=== PATIENT | female | born 1995 | race Caucasian/White ===

== ENCOUNTER 2016-07-11 23:33 | Inpatient (IN) | payer OTHER ==
[~2016-07-11] VITALS: Ht 162.6 cm; Wt 72.1 kg
[2016-07-11 23:34] VITALS: O2SAT 99
[2016-07-11] MEDS ORDERED: ETOMIDATE 20 MG/10 ML VIAL ONE ×2 (23:36→23:48)
[2016-07-11] MEDS ORDERED: SUCCINYLCHOLINE CHLORIDE 200 MG/10 ML VIAL ONE (23:36)
[2016-07-11 23:55] VITALS: O2SAT 100
[2016-07-11] MEDS ORDERED: ceFAZolin 2 GM PREMIX 50 ML ONE (23:57)
[2016-07-11] MEDS ORDERED: DIPHTH/TETANUS/ACEL PERTUSSIS (BOOSTER) 0.5 ML VIAL/PFS IM ONE (23:58)
[2016-07-11] MEDS ORDERED: PROPOFOL 1000 MG/100 ML INJ 100 ML ONE (23:59)
[2016-07-12] VITALS (18 sets, daily range): BP systolic 84–135; BP diastolic 56–70; PULSE 58–82; RESP 12–31; TEMP 96.1–99.2; O2SAT 94–100
[2016-07-12] LABS: AUTOMATED NEUTROPHIL # 5.3 TH/MM3 (1.8-7.7); BASOPHIL # 0.1 TH/MM3 (0-0.2); BASOPHIL % 0.6 % (0.0-2.0); EOSINOPHIL # 0.2 TH/MM3 (0-0.4); EOSINOPHIL % 2.3 % (0.0-4.0); HEMATOCRIT 29.8 % (35.0-46.0); HEMO FLAGS DIFF FINAL; MEAN CELL VOLUME 86.9 FL (80.0-100.0); MEAN CORPUSCULAR HEMOGLOBIN 28.1 PG (27.0-34.0); MEAN CORPUSCULAR HGB CONC 32.3 % (32.0-36.0); MONO % 8.6 % (0.0-8.0); NEUT % 56.5 % (16.0-70.0); PLATELET COUNT 280 TH/MM3 (150-450); RED BLOOD COUNT 3.43 MIL/MM3 (4.00-5.30); RED CELL DISTRIBUTION WIDTH 13.9 % (11.6-17.2); WHITE BLOOD COUNT 9.4 TH/MM3 (4.0-11.0)
[2016-07-12 00:09] LABS: I-STAT POTASSIUM 2.8 MMOL/L (3.5-4.9)
[2016-07-12] MEDS ORDERED: ceFAZolin 2 GM PREMIX 50 ML ONE (00:09)
[2016-07-12] MEDS ORDERED: ONDANSETRON HCL 4 MG/2 ML VIAL ONE (00:12)
[2016-07-12] MEDS ORDERED: MIDAZOLAM HCL 5 MG/ML VIAL (1 ML) ONE (00:12)
[2016-07-12 00:23] LABS: APTT (PATIENT) 22.5 SEC (24.3-30.1); PROTHROMBIN TIME - PATIENT 11.4 SEC (9.8-11.6)
--- NOTE | 2016-07-12 00:25 | RADRPT ---
EXAM DATE/TIME: 07/11/2016 23:55 [facility] COMPARISON: No previous studies available for comparison. INDICATIONS : Post intubation. MEDICAL HISTORY : None. SURGICAL HISTORY : None. ENCOUNTER: Initial ACUITY: 1 day PAIN SCORE: Non-responsive. LOCATION: Bilateral chest FINDINGS: The cardiac silhouette is normal in transverse diameter. The lungs are free of acute parenchymal opac ity. No effusions are identified. Endotracheal tube is in the right mainstem bronchus and should be r etracted at least 5 cm. CONCLUSION: 1. Endotracheal tube in right mainstem bronchus. This should be retracted 5 cm Donald Jackson MD on July 12, 2016 at 0:23 Board Certified Radiologist. This report was verified electronically.
--- NOTE | 2016-07-12 00:27 | RADRPT ---
EXAM DATE/TIME: 07/11/2016 23:55 [facility] COMPARISON: No previous studies available for comparison. INDICATIONS : Reposition endotrachial tube. MEDICAL HISTORY : None. SURGICAL HISTORY : None. ENCOUNTER: Subsequent ACUITY: 1 day PAIN SCORE: Non-responsive. LOCATION: Bilateral chest FINDINGS: A single view of the chest demonstrates the lungs to be symmetrically aerated without evidence of mas s, infiltrate or effusion. The cardiomediastinal contours are unremarkable. Osseous structures are intact. Endotracheal tube is in good position above the richard. CONCLUSION: 1. Satisfactory position of endotracheal tube Donald Jackson MD on July 12, 2016 at 0:25 Board Certified Radiologist. This report was verified electronically.
[2016-07-12] MEDS ORDERED: MIDAZOLAM 100 MG/ML INJ 100 ML ONE (00:55)
[2016-07-12] MEDS ORDERED: SODIUM CHLOR 0.9% 1000 ML INJ 1,000 ML IV SCH (01:19)
[2016-07-12] MEDS ORDERED: ONDANSETRON HCL 4 MG/2 ML VIAL IV PRN (01:30)
[2016-07-12] MEDS ORDERED: PROPOFOL 1000 MG/100 ML INJ 100 ML IV SCH (01:30)
[2016-07-12] MEDS ORDERED: SODIUM CHLORIDE 0.9% FLUSH 10 ML FLUSH IV FLUSH PRN (01:30)
[2016-07-12] MEDS ORDERED: NALOXONE HCL 0.4 MG/ML AMP IV PRN (01:30)
[2016-07-12] MEDS ORDERED: fentaNYL DRIP 250 ML IV SCH (01:30)
[2016-07-12] MEDS ORDERED: Post-op Orders (for Pharmacy) MISC XX ONE (01:30)
[2016-07-12] MEDS ORDERED: BUPIVACAINE HCL PF 0.25% 30 ML VIAL INFIL ONE (02:02)
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
[2016-07-12] MEDS ORDERED: FOSPHENYTOIN INJ 1,000 MGPE in SODIUM CHLORIDE 0.9% INJ 50 ML IV ONE (02:30)
[2016-07-12 03:36] LABS: BLOOD GAS BASE EXCESS -2.9 mmol/L (-2-2); BLOOD GAS CARBOXYHEMOGLOBIN 1.4 % (0-4); BLOOD GAS HCO3 22 mmol/L (22-26); BLOOD GAS O2 HGB SATURATION 94 % (90-100); BLOOD GAS OXYGEN CONTENT 11.4 Vol % (12.0-20.0); BLOOD GAS PCO2 41 mmHg (38-42); BLOOD GAS PO2 85 mmHg (61-120); BLOOD GAS TOTAL HGB 8.5 G/DL (12.0-16.0); CRITICAL VALUE NO; OXYGEN DEVICE VENTILATOR; TEMP CORR TO 98.6
[2016-07-12 03:37] LABS: DRAW SITE LT RADIAL; FIO2 40 %; NUMBER OF ARTERIAL PUNCTURES 1; STAT NO; ULNAR PULSE PRESENT; VENT SETTINGS PRVC/AC
--- NOTE | 2016-07-12 03:56 | RADRPT ---
EXAM DATE/TIME: 07/12/2016 02:41 [facility] COMPARISON: No previous studies available for comparison. INDICATIONS : Altered mental status. RADIATION DOSE: 56.35 CTDIvol (mGy) MEDICAL HISTORY : Non-responsive. SURGICAL HISTORY : Non-responsive. ENCOUNTER: Initial ACUITY: 1 day PAIN SCALE: Non-responsive LOCATION: cranial TECHNIQUE: Multiple contiguous axial images were obtained of the head. Using automated exposure control and adj ustment of the mA and/or kV according to patient size, radiation dose was kept as low as reasonably a chievable to obtain optimal diagnostic quality images. FINDINGS: CEREBRUM: The ventricles are normal for age. No evidence of midline shift, mass lesion, hemorrhage or acute in farction. No extra-axial fluid collections are seen. POSTERIOR FOSSA: The cerebellum and brainstem are intact. The 4th ventricle is midline. The cerebellopontine angle i s unremarkable. EXTRACRANIAL: The visualized portion of the orbits is intact. There is benign-appearing mucosal disease in the maxi llary antra bilaterally. SKULL: The calvaria is intact. No evidence of skull fracture. CONCLUSION: 1. No evidence of acute intracranial pathology. No masses are identified. Donald Jackson MD on July 12, 2016 at 3:53 Board Certified Radiologist. This report was verified electronically.
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
[2016-07-12] MEDS ORDERED: PANTOPRAZOLE SODIUM 40 MG VIAL IV SCH (09:00)
[2016-07-12] MEDS ORDERED: levETIRAcetam INJ 500 MG in SODIUM CHLORIDE 0.9% INJ 100 ML IV SCH (09:00)
[2016-07-12] MEDS: SODIUM CHLORIDE 0.9% FLUSH 10 ML FLUSH IV FLUSH SCH ×2 (09:00→23:09)
[2016-07-12] MEDS ORDERED: ACETAMINOPHEN 1000 MG/100 ML VIAL IV ONE (09:59)
[2016-07-12] MEDS: oxyCODONE/ACETAMINOPHEN 5 MG/325 MG TAB PO PRN ×4 (10:11→23:14)
[2016-07-12] MEDS: levETIRAcetam 500 MG TAB PO SCH ×2 (10:15→23:09)
[2016-07-12] MEDS: DOCUSATE SODIUM 50 MG/SENNA 8.6 MG TAB PO SCH ×2 (10:16→23:06)
[2016-07-12] MEDS ORDERED: NORMOSOL R INJ 1,000 ML IV ONE (12:00)
[2016-07-12] MEDS ORDERED: POTASSIUM CHLORIDE 20 MEQ CONTROLLED RELEASE TAB PO ONE (13:00)
[2016-07-12 20:57] LABS: AUTOMATED NEUTROPHIL # 5.4 TH/MM3 (1.8-7.7); BASOPHIL % 0.2 % (0.0-2.0); EOSINOPHIL # 0.1 TH/MM3 (0-0.4); EOSINOPHIL % 1.3 % (0.0-4.0); HEMATOCRIT 24.1 % (35.0-46.0); HEMO FLAGS DIFF FINAL; LYMPHOCYTE # 1.7 TH/MM3 (1.0-4.8); MEAN CELL VOLUME 81.6 FL (80.0-100.0); MEAN CORPUSCULAR HEMOGLOBIN 27.9 PG (27.0-34.0); MEAN CORPUSCULAR HGB CONC 34.2 % (32.0-36.0); MONO % 7.5 % (0.0-8.0); PLATELET COUNT 207 TH/MM3 (150-450); RED BLOOD COUNT 2.96 MIL/MM3 (4.00-5.30); RED CELL DISTRIBUTION WIDTH 15.3 % (11.6-17.2); WHITE BLOOD COUNT 7.9 TH/MM3 (4.0-11.0)
[2016-07-12 21:12] LABS: ALT (GPT) 19 U/L (10-53); ANION GAP 7 MEQ/L (5-15); AST (GOT) 32 U/L (15-37); BICARBONATE 24.9 MEQ/L (21.0-32.0); BLOOD UREA NITROGEN 5 MG/DL (7-18); CHLORIDE 110 MEQ/L (98-107); GLOMERULAR FILTRATION RATE 85 ML/MIN (>89); POTASSIUM 3.6 MEQ/L (3.5-5.1); SODIUM (NA) 142 MEQ/L (136-145)
[2016-07-12 21:15] LABS: ALKALINE PHOSPHATASE 54 U/L (45-117); TOTAL BILIRUBIN ADULT 0.3 MG/DL (0.2-1.0)
[2016-07-12] MEDS: FAMOTIDINE 20 MG TAB PO SCH (23:06)
[2016-07-13] VITALS (9 sets, daily range): BP systolic 100–130; BP diastolic 56–84; PULSE 55–104; RESP 16–28; TEMP 96–99.2; O2SAT 94–100
[2016-07-13] MEDS: ENOXAPARIN SODIUM 40 MG/0.4 ML SYRINGE SQ SCH (01:09)
[2016-07-13] MEDS: oxyCODONE/ACETAMINOPHEN 5 MG/325 MG TAB PO PRN ×4 (04:47→18:19)
[2016-07-13 06:44] LABS: AUTOMATED NEUTROPHIL # 4.7 TH/MM3 (1.8-7.7); BASOPHIL % 0.2 % (0.0-2.0); EOSINOPHIL # 0.2 TH/MM3 (0-0.4); EOSINOPHIL % 2.4 % (0.0-4.0); HEMATOCRIT 24.3 % (35.0-46.0); HEMO FLAGS DIFF FINAL; LYMPH % 25.1 % (9.0-44.0); LYMPHOCYTE # 1.8 TH/MM3 (1.0-4.8); MEAN CELL VOLUME 82.5 FL (80.0-100.0); MONO % 5.9 % (0.0-8.0); NEUT % 66.4 % (16.0-70.0); PLATELET COUNT 200 TH/MM3 (150-450); RED BLOOD COUNT 2.95 MIL/MM3 (4.00-5.30); RED CELL DISTRIBUTION WIDTH 15.3 % (11.6-17.2); WHITE BLOOD COUNT 7.1 TH/MM3 (4.0-11.0)
[2016-07-13 07:05] LABS: BICARBONATE 25.4 MEQ/L (21.0-32.0); POTASSIUM 3.4 MEQ/L (3.5-5.1)
[2016-07-13 07:07] LABS: INDIRECT BILIRUBIN 0.2 MG/DL (0.0-0.8); TOTAL BILIRUBIN ADULT 0.3 MG/DL (0.2-1.0)
[2016-07-13] MEDS ORDERED: POTASSIUM CHLORIDE 10 MEQ CONTROLLED RELEASE TAB PO ONE (08:00)
[2016-07-13] MEDS: levETIRAcetam 500 MG TAB PO SCH ×2 (08:33→21:14)
[2016-07-13] MEDS: FAMOTIDINE 20 MG TAB PO SCH ×2 (08:33→21:14)
[2016-07-13] MEDS: SODIUM CHLORIDE 0.9% FLUSH 10 ML FLUSH IV FLUSH SCH ×2 (08:33→21:16)
[2016-07-13] MEDS: DOCUSATE SODIUM 50 MG/SENNA 8.6 MG TAB PO SCH ×2 (08:33→21:14)
[2016-07-13] MEDS ORDERED: HYDROmorphone HCL PF 1 MG/ML VIAL IV PUSH PRN (10:00)
[2016-07-13] MEDS: RESP: ALBUTEROL 2.5 MG/IPRATROPIUM 0.5 MG NEB (PRN) NEB ×4 (10:20→22:33)
[2016-07-13] MEDS ORDERED: RESP: ALBUTEROL 2.5 MG/IPRATROPIUM 0.5 MG NEB (SCH) ONE (10:52)
--- NOTE | 2016-07-13 11:02 | RADRPT ---
EXAM DATE/TIME: 07/13/2016 09:55 [facility] COMPARISON: CHEST SINGLE AP, July 11, 2016, 23:55. INDICATIONS : Shortness of breath. MEDICAL HISTORY : None. SURGICAL HISTORY : None. ENCOUNTER: Initial ACUITY: 2 days PAIN SCORE: 0/10 LOCATION: Bilateral chest FINDINGS: Single AP view of the chest. The lungs are clear. Cardiomediastinal silhouette within normal limits. No evidence of pleural effusion or pneumothorax. CONCLUSION: No acute cardiopulmonary disease identified. Davey Brito MD on July 13, 2016 at 11:00 Board Certified Radiologist. This report was verified electronically.
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
--- NOTE | 2016-07-13 14:00 | HHI.PR ---
Subjective Subjective Notes Anxious Tachypneic, RR 40 States she is too painful to move her right hand/arm Objective Vitals/I&O Vital Signs Date Time Temp Pulse Resp B/P Pulse Ox O2 Delivery O2 Flow Rate FiO2 07/13/16 12:00 97.0 88 17 115/59 94 07/13/16 10:18 Nasal Cannula 2.00 07/12/16 12:19 21 Labs Laboratory Tests Test 07/12/16 07/13/16 19:35 06:12 White Blood Count 7.9 7.1 Red Blood Count 2.96 2.95 Hemoglobin 8.2 8.3 Hematocrit 24.1 24.3 Mean Corpuscular Volume 81.6 82.5 Mean Corpuscular Hemoglobin 27.9 28.0 Mean Corpuscular Hemoglobin 34.2 34.0 Concent Red Cell Distribution Width 15.3 15.3 Platelet Count 207 200 Mean Platelet Volume 8.1 7.9 Neutrophils (%) (Auto) 69.0 66.4 Lymphocytes (%) (Auto) 22.0 25.1 Monocytes (%) (Auto) 7.5 5.9 Eosinophils (%) (Auto) 1.3 2.4 Basophils (%) (Auto) 0.2 0.2 Neutrophils # (Auto) 5.4 4.7 Lymphocytes # (Auto) 1.7 1.8 Monocytes # (Auto) 0.6 0.4 Eosinophils # (Auto) 0.1 0.2 Basophils # (Auto) 0.0 0.0 CBC Comment DIFF FINAL DIFF FINAL Differential Comment Sodium Level 142 141 Potassium Level 3.6 3.4 Chloride Level 110 108 Carbon Dioxide Level 24.9 25.4 Anion Gap 7 8 Blood Urea Nitrogen 5 4 Creatinine 0.61 0.50 Estimat Glomerular Filtration 85 106 Rate Random Glucose 96 86 Calcium Level 7.6 8.0 Total Bilirubin 0.3 0.3 Aspartate Amino Transf 32 30 (AST/SGOT) Alanine Aminotransferase 19 19 (ALT/SGPT) Alkaline Phosphatase 54 58 Total Protein 5.8 6.1 Albumin 2.8 2.8 Direct Bilirubin 0.1 Indirect Bilirubin 0.2 Radiology Last Impressions Chest X-Ray 07/13/16 0000 Signed Impressions: Service Date/Time: Wednesday, July 13, 2016 09:55 - CONCLUSION: No acute cardiopulmonary disease identified. Davey Brito MD Head CT 07/12/16 0000 Signed Impressions: Service Date/Time: Tuesday, July 12, 2016 02:41 - CONCLUSION: 1. No evidence of acute intracranial pathology. No masses are identified. Donald Jackson MD Narrative Exam GENERAL: Adult female in her 30's lying in bed. SKIN: Warm and dry. HEAD: Normocephalic. ENT: No nasal bleeding or discharge. Mucous membranes pink and moist. NECK: Trachea midline. No JVD. CARDIOVASCULAR: Regular rate and rhythm. RESPIRATORY: Scattered rhonchi auscultated throughout lung escobedo. Breath sounds equal bilaterally. Tachypneic, RR 40. GASTROINTESTINAL: Abdomen soft, non-tender, nondistended. + BS. MUSCULOSKELETAL: Extremities without cyanosis, +1 forearm edema. Right forearm dressing removed. Sutures C/D/I. NEUROLOGICAL: Awake and alert. Normal speech. A/P Assessment and Plan INJURIES: Right arm lac with brachial artery branch injury 07/12: Exploration/irrigation and repair of right arm laceration Diet: Regular, tolerating Pulm: IS, encourage patient use. PRN nebulizer treatments Pain: Percocet, added IV Dilaudid for better pain control. Activity: OOB. PT and OT evaluating. GI: Pepcid Bowel: Yvonne-colace. No BM yet DVT: SCDs, Lovenox 40 QD Right forearm lac with brachial artery branch injury 07/12: Exploration/irrigation and repair of right arm laceration Pain control Daily dressing changes with dry dressing Okay to shower OT Seizures Has history of but does not take meds at home Keppra 500 by mouth twice a day Neurology consulted EEG ordered Stat nebulizer treatment and CXR obtained for tachypnea today. CXR WNL. Patient's respiratory status improved after nebulizer treatment. Plan of care discussed with patient, mother and RN at bedside. Case management consulted to assist discharge planning. Plan to DC in 1-2 days. The exam, history, and the medical decision-making described in the above note were completed with the assistance of the mid-level provider. I reviewed and agree with the findings presented. I attest that I had a [id number] encounter with the patient on the same day, and personally performed and documented my assessment and findings in the medical record. Toñito Beasley Jul 13, 2016 14:00 Eloy Tovar MD Aug 06, 2016 11:01
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
[2016-07-13] MEDS ORDERED: LACTULOSE SYRUP 20 GM/30 ML CUP PO ONE (19:15)
[2016-07-13] MEDS ORDERED: LORazepam 2 MG/ML VIAL ONE (22:48)
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
[2016-07-13] MEDS: LORazepam 2 MG/ML VIAL IV PUSH PRN (23:15)
[2016-07-14] MEDS: ENOXAPARIN SODIUM 40 MG/0.4 ML SYRINGE SQ SCH (03:24)
[2016-07-14 08:00] VITALS: BP 120/58; PULSE 80; RESP 19; TEMP 96.2; O2SAT 100
[2016-07-14] MEDS: oxyCODONE/ACETAMINOPHEN 5 MG/325 MG TAB PO PRN ×2 (09:58→16:56)
[2016-07-14] MEDS: DOCUSATE SODIUM 50 MG/SENNA 8.6 MG TAB PO SCH ×2 (09:59→21:00)
[2016-07-14] MEDS: levETIRAcetam 500 MG TAB PO SCH ×2 (09:59→22:53)
[2016-07-14] MEDS: FAMOTIDINE 20 MG TAB PO SCH ×2 (09:59→22:54)
[2016-07-14] MEDS: SODIUM CHLORIDE 0.9% FLUSH 10 ML FLUSH IV FLUSH SCH ×2 (10:00→22:54)
[2016-07-14 10:17] VITALS: O2SAT 97
[2016-07-14 11:53] VITALS: BP 112/59; PULSE 72; RESP 19; TEMP 97.6; O2SAT 100
[2016-07-14] MEDS: RESP: ALBUTEROL 2.5 MG/IPRATROPIUM 0.5 MG NEB (PRN) NEB (12:16)
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
--- NOTE | 2016-07-14 15:55 | HHI.PR ---
Subjective Subjective Notes Anxiety attack with SOB overnight requiring Ativan Currently tearful Reports pain is better today and she is able to move her right arm more Objective Vitals/I&O Vital Signs Date Time Temp Pulse Resp B/P Pulse Ox O2 Delivery O2 Flow Rate FiO2 07/14/16 11:53 97.6 72 19 112/59 100 07/14/16 10:17 21 07/13/16 20:17 Nasal Cannula 2.00 Labs Laboratory Tests Test 07/11/16 07/12/16 07/13/16 23:35 03:25 06:12 Bedside Hemoglobin 9.9 G/DL Bedside Hematocrit 29.0 % Prothrombin Time 11.4 SEC Prothromb Time International 1.0 RATIO Ratio Activated Partial 22.5 SEC Thromboplast Time Bedside Sodium 144 MMOL/L Bedside Potassium 2.8 MMOL/L Bedside Chloride 107 MMOL/L Bedside Blood Urea Nitrogen 12 MG/DL Bedside Creatinine 0.8 MG/DL Bedside Glucose 161 MG/DL Blood Type A POSITIVE Antibody Screen NEGATIVE Crossmatch Leukocyte-Reduced Red Blood Cells Blood Bank Comment Blood Gas Puncture Site LT RADIAL Blood Gas Patient Temperature 98.6 Blood Gas HCO3 22 mmol/L Blood Gas Base Excess -2.9 mmol/L Blood Gas Oxygen Saturation 94 % Arterial Blood pH 7.35 Arterial Blood Partial 41 mmHg Pressure CO2 Arterial Blood Partial 85 mmHg Pressure O2 Arterial Blood Oxygen Content 11.4 Vol % Arterial Blood 1.4 % Carboxyhemoglobin Arterial Blood Methemoglobin 1.0 % Blood Gas Hemoglobin 8.5 G/DL Oxygen Delivery Device VENTILATOR Blood Gas Ventilator Setting PRVC/AC Blood Gas Inspired Oxygen 40 % White Blood Count 7.1 TH/MM3 Red Blood Count 2.95 MIL/MM3 Hemoglobin 8.3 GM/DL Hematocrit 24.3 % Mean Corpuscular Volume 82.5 FL Mean Corpuscular Hemoglobin 28.0 PG Mean Corpuscular Hemoglobin 34.0 % Concent Red Cell Distribution Width 15.3 % Platelet Count 200 TH/MM3 Mean Platelet Volume 7.9 FL Neutrophils (%) (Auto) 66.4 % Lymphocytes (%) (Auto) 25.1 % Monocytes (%) (Auto) 5.9 % Eosinophils (%) (Auto) 2.4 % Basophils (%) (Auto) 0.2 % Neutrophils # (Auto) 4.7 TH/MM3 Lymphocytes # (Auto) 1.8 TH/MM3 Monocytes # (Auto) 0.4 TH/MM3 Eosinophils # (Auto) 0.2 TH/MM3 Basophils # (Auto) 0.0 TH/MM3 CBC Comment DIFF FINAL Differential Comment Sodium Level 141 MEQ/L Potassium Level 3.4 MEQ/L Chloride Level 108 MEQ/L Carbon Dioxide Level 25.4 MEQ/L Anion Gap 8 MEQ/L Blood Urea Nitrogen 4 MG/DL Creatinine 0.50 MG/DL Estimat Glomerular Filtration 106 ML/MIN Rate Random Glucose 86 MG/DL Calcium Level 8.0 MG/DL Total Bilirubin 0.3 MG/DL Direct Bilirubin 0.1 MG/DL Indirect Bilirubin 0.2 MG/DL Aspartate Amino Transf 30 U/L (AST/SGOT) Alanine Aminotransferase 19 U/L (ALT/SGPT) Alkaline Phosphatase 58 U/L Total Protein 6.1 GM/DL Albumin 2.8 GM/DL Radiology Last Impressions Chest X-Ray 07/13/16 0000 Signed Impressions: Service Date/Time: Wednesday, July 13, 2016 09:55 - CONCLUSION: No acute cardiopulmonary disease identified. Davey Brito MD Head CT 07/12/16 0000 Signed Impressions: Service Date/Time: Tuesday, July 12, 2016 02:41 - CONCLUSION: 1. No evidence of acute intracranial pathology. No masses are identified. Donald Jackson MD Narrative Exam GENERAL: Adult female in her 30's OOB in chair. SKIN: Warm and dry. HEAD: Normocephalic. ENT: No nasal bleeding or discharge. Mucous membranes pink and moist. NECK: Trachea midline. No JVD. CARDIOVASCULAR: Regular rate and rhythm. RESPIRATORY: Scattered rhonchi auscultated throughout lung escobedo. Breath sounds equal bilaterally. GASTROINTESTINAL: Abdomen soft, non-tender, nondistended. + BS. MUSCULOSKELETAL: Extremities without cyanosis, +1 forearm edema. Right forearm dressing C/D/I. NEUROLOGICAL: Awake and alert. Anxious. Normal speech. A/P Assessment and Plan INJURIES: Right arm lac with brachial artery branch injury 07/12: Exploration/irrigation and repair of right arm laceration Diet: Regular, tolerating Pulm: IS, encourage patient use. PRN nebulizer treatments Pain: Percocet, IV Dilaudid Activity: OOB. PT and OT evaluating. GI: Pepcid Bowel: Yvonne-colace. No BM yet. lactulose 1 yesterday not effective. Lactulose 1 today DVT: SCDs, Lovenox 40 QD Right forearm lac with brachial artery branch injury 07/12: Exploration/irrigation and repair of right arm laceration Pain control Daily dressing changes with dry dressing Okay to shower OT Seizures Has history of but does not take meds at home Keppra 500 PO BID Neurology following EEG pending Plan of care discussed with patient and RN at bedside. Case management consulted to assist discharge planning. Case management to assist to ensure patient has a safe discharge. Plan to DC in a.m. Attending Statement The exam, history, and the medical decision-making described in the above note were completed with the assistance of the mid-level provider. I reviewed and agree with the findings presented. I attest that I had a [id number] encounter with the patient on the same day, and personally performed and documented my assessment and findings in the medical record. Toñito Beasley Jul 14, 2016 15:54 Handy West MD Jul 15, 2016 15:12
[2016-07-14] MEDS ORDERED: LACTULOSE SYRUP 20 GM/30 ML CUP PO ONE (16:00)
[2016-07-14 16:12] VITALS: BP 109/69; PULSE 82; RESP 17; TEMP 97.5; O2SAT 98
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
[2016-07-14 20:00] VITALS: BP 113/65; PULSE 81; RESP 16; TEMP 97.1; O2SAT 99
[2016-07-15 00:40] VITALS: BP 121/77; PULSE 79; RESP 16; TEMP 96.8; O2SAT 100
[2016-07-15] MEDS: ENOXAPARIN SODIUM 40 MG/0.4 ML SYRINGE SQ SCH (01:37)
[2016-07-15 03:20] VITALS: BP 104/60; PULSE 78; RESP 15; TEMP 97; O2SAT 95
[2016-07-15] MEDS: levETIRAcetam 500 MG TAB PO SCH (07:33)
[2016-07-15] MEDS: DOCUSATE SODIUM 50 MG/SENNA 8.6 MG TAB PO SCH (07:33)
[2016-07-15] MEDS: FAMOTIDINE 20 MG TAB PO SCH (07:33)
[2016-07-15] MEDS: oxyCODONE/ACETAMINOPHEN 5 MG/325 MG TAB PO PRN ×3 (07:34→14:51)
[2016-07-15 08:00] VITALS: BP 104/59; PULSE 107; RESP 18; TEMP 96.6; O2SAT 100
[2016-07-15] MEDS: SODIUM CHLORIDE 0.9% FLUSH 10 ML FLUSH IV FLUSH SCH (09:00)
[2016-07-15 12:00] VITALS: BP 111/65; PULSE 83; RESP 17; TEMP 97.1; O2SAT 98
[2016-07-15] MEDS ORDERED: KEPP10002 PO (13:44)
[2016-07-15] MEDS ORDERED: PERC5TAB12 PO (13:44)
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
[2016-07-15] MEDS: LORazepam 2 MG/ML VIAL IV PUSH PRN (14:52)
[2016-07-15 15:17] VITALS: O2SAT 99
[2016-07-15] MEDS: RESP: ALBUTEROL 2.5 MG/IPRATROPIUM 0.5 MG NEB (PRN) NEB (15:17)
== END 2016-07-15 17:09 | disposition home or self-care (01) | DRG 907 ==
LOC: NEPI 23:33 → EDBD 07-12 00:59 → NEDA 07-12 00:59 → EEVIPCON 07-12 00:59 → N03A 07-12 02:24 → N06B 07-12 14:11 → N06A 07-12 20:51
PROVIDERS: ADMIT Surgery; ATTEND Surgery
PROC: 0KQ90ZZ Repair Right Lower Arm and Wrist Muscle, Open Approach (ICD-10-PCS; 2016-07-12)
PROC: 0BH17EZ Insertion of Endotracheal Airway into Trachea, Via Natural or Artificial Opening (ICD-10-PCS; 2016-07-12)
PROC: 5A1945Z Respiratory Ventilation, 24-96 Consecutive Hours (ICD-10-PCS; 2016-07-12)
PROC: 03Q70ZZ Repair Right Brachial Artery, Open Approach (ICD-10-PCS; principal; 2016-07-12 01:21)
DX: S45.111A Laceration of brachial artery, right side, initial encounter (principal); T79.4XXA Traumatic shock, initial encounter; J96.00 Acute respiratory failure, unspecified whether with hypoxia or hypercapnia; R40.2431 Glasgow coma scale score 3-8, in the field [EMT or ambulance]; S51.811A Laceration without foreign body of right forearm, initial encounter; X99.1XXA Assault by knife, initial encounter; Y92.9 Unspecified place or not applicable; G40.909 Epilepsy, unspecified, not intractable, without status epilepticus; F41.1 Generalized anxiety disorder; Z91.14 Patient's other noncompliance with medication regimen
CPT/HCPCS: 31500; 36430; 36600; 51702; 70450; 71010; 80048; 80053; 80076; 82435; 82565; 82805; 82947; 84132; 84295; 84520; 85025; 85610; 85730; 86850; 86900; 86901; 86920; 90471; 90715; 94002; 94150; 94640; 94664; 95819; 96374; 96375; 96376; 99291; C9113; G0390; J0131; J0330; J0690; J1650; J2060; J2250; J2405; J3010; J7030; P9016; Q2009

== ENCOUNTER 2016-07-23 14:11 | Emergency (ER) | payer SELFPAY ==
[~2016-07-23] VITALS: Ht 157.5 cm; Wt 52.3 kg
[~2016-07-23 14:11] MED LIST: KEPP10002 PO; PERC5TAB12 PO
[2016-07-23 14:13] VITALS: BP 125/59; PULSE 76; RESP 15; TEMP 98.2; O2SAT 99
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
== END 2016-07-23 15:33 | disposition home or self-care (01) ==
LOC: NEPK 14:11
DX: S51.811D Laceration without foreign body of right forearm, subsequent encounter (principal); Z48.02 Encounter for removal of sutures; X58.XXXD Exposure to other specified factors, subsequent encounter
CPT/HCPCS: 99281